=== PATIENT | female | born 1975 | race Caucasian/White ===

== ENCOUNTER 2022-01-25 08:23 | Day surgery (SDC) | payer BC ==
[~2022-01-25 08:23] MED LIST: Lactated Ringers 1,000 ML IV SCH; Propofol 200 MG/20 ML SDV ONE; Sodium Chloride 0.9% 10 ML Syringe FLUSH PRN; Sodium Chloride 0.9% 2.5 ML Syringe FLUSH PRN; Sodium Chloride 0.9% 20 ML SDV IV PRN
== END 2022-01-25 11:16 | disposition home or self-care (01) ==
LOC: MW.SDS 08:23
PROVIDERS: ATTEND Surgery
DX: Z12.11 Encounter for screening for malignant neoplasm of colon (principal); K62.1 Rectal polyp; F41.9 Anxiety disorder, unspecified; F32.A Depression, unspecified; K21.9 Gastro-esophageal reflux disease without esophagitis; Z79.899 Other long term (current) drug therapy; Z88.1 Allergy status to other antibiotic agents; Z88.2 Allergy status to sulfonamides; Z98.890 Other specified postprocedural states; Z87.891 Personal history of nicotine dependence
CPT/HCPCS: 45380; 81025; J2704; J7120

== ENCOUNTER 2025-01-28 09:29 | Day surgery (SDC) | payer BC, OTHER ==
[~2025-01-28 09:29] MED LIST changes: -Lactated Ringers 1,000 ML IV SCH; -Propofol 200 MG/20 ML SDV ONE; -Sodium Chloride 0.9% 20 ML SDV IV PRN
[2025-01-28] MEDS: Lactated Ringers 1,000 ML IV SCH (09:50)
[2025-01-28] MEDS ORDERED: propofoL 500 MG/50 ML 50 ML ONE (11:02)
== END 2025-01-28 12:05 | disposition home or self-care (01) ==
LOC: MW.SDS 09:29
PROVIDERS: ATTEND Surgery
DX: R10.32 Left lower quadrant pain (principal); K80.20 Calculus of gallbladder without cholecystitis without obstruction; Z88.8 Allergy status to other drugs, medicaments and biological substances; Z88.2 Allergy status to sulfonamides; Z79.899 Other long term (current) drug therapy; Z87.891 Personal history of nicotine dependence; Z86.0100 Personal history of colon polyps, unspecified
CPT/HCPCS: 45380; J2704; J7120; 00811